=== PATIENT | male | born 1965 | race Caucasian/White ===

== ENCOUNTER → 2017-12-03 | Outpatient (CLI) | payer OTHER ==
[2014-04-20 09:34] VITALS: BMI 47.1
[~2017-12-03] MED LIST: ACET-2031 PO; ALL300 PO; AMOX-559 PO; ASPI81TA94 PO; CARV25TA77 PO; DULO20CA16 PO; DULO60CA56 PO; EZET10TA41 PO; FURO20TA19 PO; HYDR12.556 PO; HYPERLIPIDEMIA; INSU100C12 SQ; INSU100C13 SQ; INSU100V24 SQ; LEVO750T23 PO; MAGN71.52 PO; METO200T12 PO; NITR0.4T3 SL; OXYC-865 PO; PREG100C44 PO; PREG50CA48 PO; RAM25 PO; RAMI10CA52 PO; SIMV10TA98 PO; TRAZ50 PO; UBID100C9 PO
[2017-12-03 13:57] LABS: PLATELET COUNT, AUTOMATED 247 K/uL (150-450)
== END ==
LOC: LAB 13:37
PROVIDERS: ATTEND Internal Medicine Nephrology
DX: E11.22 Type 2 diabetes mellitus with diabetic chronic kidney disease (principal); N18.4 Chronic kidney disease, stage 4 (severe); N25.81 Secondary hyperparathyroidism of renal origin; R60.0 Localized edema; N18.9 Chronic kidney disease, unspecified; D63.1 Anemia in chronic kidney disease; R80.9 Proteinuria, unspecified; I12.9 Hypertensive chronic kidney disease with stage 1 through stage 4 chronic kidney disease, or unspecified chronic kidney disease; N28.9 Disorder of kidney and ureter, unspecified
CPT/HCPCS: 36415; 82040; 82310; 82374; 82435; 82565; 82728; 82947; 83540; 83550; 83970; 84100; 84132; 84295; 84520; 85025

== ENCOUNTER 2017-12-19 07:19 | Emergency (ER) | payer OTHER ==
[2014-04-20 09:34] VITALS: Ht 165.1 cm; Wt 132.0 kg
[~2017-12-19] VITALS: Ht 165.1 cm; Wt 132.0 kg
--- NOTE | 2017-12-19 07:22 | ER Report ---
History and Physical Time Seen By MD: 07:21 HPI/ROS CHIEF COMPLAINT: Low blood sugar HISTORY OF PRESENT ILLNESS: Patient is a 52-year-old male who presents emergency department by ambulance for evaluation of low blood sugar. Apparently this morning the patient was altered and somewhat combative with spouse. Prehospital personnel found her blood sugar 49 administered D50 with a rapid return to baseline mental status. Patient is otherwise asymptomatic at this time. He recently had a fistula placed and is supposed to begin dialysis but has not started yet. His last baseline creatinine was 4.3 on 12/03/2017. Room injury or trauma he denies chest pain or shortness of breath denies abdominal pain nausea vomiting or diarrhea. REVIEW OF SYSTEMS: Constitutional: No fever, no chills. Eyes: No discharge. ENT: No sore throat. Cardiovascular: No chest pain, no palpitations. Respiratory: No cough, no shortness of breath. Gastrointestinal: No abdominal pain, no vomiting. Genitourinary: No hematuria. Musculoskeletal: No back pain. Skin: No rashes. Neurological: No headache. Allergies: Coded Allergies: morphine (Verified Allergy, Mild, VOMITING, 12/19/17) Home Meds Reported Medications Pregabalin (LYRICA) 100 Mg Capsule, PO BID, CAPSULE 06/11/16 Magnesium Chloride (SLOW-MAG) 71.5 Mg Tablet.dr, 71.5 MG PO BID, #60 04/20/14 Nitroglycerin (NITROGLYCERIN) 0.4 Mg Tab.subl, 0.4 MG SL Q5MIN 04/20/14 Ezetimibe (ZETIA) 10 Mg Tablet, 10 MG PO QDAY 04/19/14 Furosemide (LASIX) 20 Mg Tablet, 1 TAB PO DAILY TAKE ONE TABLET BY MOUTH EVERY 6-8 HOURS 04/19/14 Metoprolol Succinate (METOPROLOL SUCCINATE) 200 Mg Tab.er.24h, 200 MG PO QDAY 02/13/14 Ubidecarenone (CO Q-10) 100 Mg Capsule, 100 MG PO DAILY, CAPSULE 02/13/14 Aspirin (ASPIRIN) 81 Mg Tab.chew, 81 MG PO QDAY, TAB.CHEW TAKE 1 TABLET BY MOUTH EVERY DAY 02/13/14 Ramipril (RAMIPRIL) 10 Mg Capsule, 10 MG PO BID, CAPSULE 02/13/14 Duloxetine Hcl (CYMBALTA) 60 Mg Capsule.dr, 60 MG PO QDAY 02/13/14 Insulin Glulisine (APIDRA) 100 Unit/1 Ml Cartridge, 35 UNIT SQ TID 06/29/13 Simvastatin (SIMVASTATIN) 10 Mg Tablet, 10 MG PO HS 05/15/13 Insulin Glargine,Hum.rec.anlog (LANTUS) 100 Unit/1 Ml Cartridge, 45 UNIT SQ BID take 35 units in the morning and take 25 units at night 05/15/13 Allopurinol (ZYLOPRIM (OR EQUIV)) 300 Mg Tab, 300 MG PO DAILY 05/10/12 Past Medical/Surgical History Past Medical/Surgical History Past medical history of irregular heartbeat, hypertension, hypercholesterolemia , sleep apnea, heartburn, UTIs, chronic kidney disease, gout, insulin-dependent diabetes, anxiety, depression Hx Smoking: No Smoking Status: Never Smoker Exposure to Second Hand Smoke?: No Hx Substance Use Disorder: No Hx Alcohol Use: No Constitutional Vital Sign - Last 24 Hours 12/19/17 12/19/17 12/19/17 12/19/17 07:25 07:26 07:29 07:34 Temp 97.9 Pulse 58 55 57 Resp 16 28 28 B/P (MAP) 162/78 162/78 (106) Pulse Ox 96 97 95 O2 Delivery Room Air 12/19/17 12/19/17 12/19/17 12/19/17 07:39 07:44 07:45 07:50 Pulse 60 53 54 51 Resp 70 15 18 Pulse Ox 95 96 94 12/19/17 12/19/17 12/19/17 12/19/17 08:05 08:20 08:25 08:30 Pulse 55 51 50 Resp 21 B/P (MAP) 154/67 (96) 186/78 (114) Pulse Ox 96 96 96 12/19/17 12/19/17 12/19/17 12/19/17 08:35 08:40 08:45 08:55 Pulse 51 53 51 B/P (MAP) 204/85 (124) Pulse Ox 95 93 95 92 12/19/17 12/19/17 12/19/17 12/19/17 09:00 09:15 09:30 09:45 B/P (MAP) 189/89 (122) 201/84 (123) 204/86 (125) 187/81 (116) 12/19/17 12/19/17 10:00 10:15 B/P (MAP) 189/74 (112) 192/77 (115) Intake and Output 12/19/17 12/19/17 12/20/17 15:01 23:01 07:01 Intake Total 1000 ml Balance 1000 ml Physical Exam General Appearance: The patient is alert, has no immediate need for airway protection and no signs of toxicity. [ ] Eyes: Pupils equal and round no pallor or injection. ENT, Mouth: Mucous membranes are moist. Respiratory: There are no retractions, lungs are clear to auscultation. Cardiovascular: Regular rate and rhythm. [ ] Gastrointestinal: Abdomen is soft and non tender, no masses, bowel sounds normal. Neurological: Awake alert oriented 3 Skin: Warm and dry, no rashes. Musculoskeletal: Neck is supple non tender. Extremities are nontender, nonswollen and have full range of motion. Medical Decision Making Data Points Result Diagram: 12/19/17 0812 12/19/17 0845 Laboratory Hematology Test 12/19/17 08:12 12/19/17 08:45 12/19/17 10:25 Red Blood Count 4.27 M/uL (4.00-5.60) Mean Corpuscular Volume 89.5 fL (80.0-96.0) Mean Corpuscular Hemoglobin 28.9 pg (26.0-33.0) Mean Corpuscular Hemoglobin Concent 32.3 g/dL (32.0-36.0) Red Cell Distribution Width 16.1 % (11.5-14.5) Mean Platelet Volume 9.1 fL (7.2-11.1) Neutrophils (%) (Auto) 85.4 % (39.4-72.5) Lymphocytes (%) (Auto) 6.3 % (17.6-49.6) Monocytes (%) (Auto) 4.5 % (4.1-12.4) Eosinophils (%) (Auto) 2.2 % (0.4-6.7) Basophils (%) (Auto) 1.6 % (0.3-1.4) Nucleated RBC Relative Count (auto) 0.0 /100WBC Neutrophils # (Auto) 11.2 K/uL (2.0-7.4) Lymphocytes # (Auto) 0.8 K/uL (1.3-3.6) Monocytes # (Auto) 0.6 K/uL (0.3-1.0) Eosinophils # (Auto) 0.3 K/uL (0.0-0.5) Basophils # (Auto) 0.2 K/uL (0.0-0.1) Nucleated RBC Absolute Count (auto) 0.00 K/uL Urine Color Yellow Urine Clarity Clear Urine pH 5.0 pH (4.8-9.5) Urine Specific [place] 1.012 Urine Protein 100 mg/dL (NEGATIVE) Urine Glucose (UA) 50 mg/dL (NEGATIVE) Urine Ketones Negative mg/dL (NEGATIVE) Urine Blood Negative (NEGATIVE) Urine Nitrite Negative (NEGATIVE) Urine Bilirubin Negative (NEGATIVE) Urine Urobilinogen Negative mg/dL (0.2-1.9) Urine Leukocyte Esterase Negative (NEGATIVE) Urine RBC None /HPF (0-2/HPF) Urine WBC 1 /HPF (0-5/HPF) Urine Squamous Epithelial Cells Few /LPF (</=FEW) Urine Bacteria Few /HPF (NONE-FEW) Urine Mucus None /HPF (NONE-FEW) Sodium Level 137 mmol/L (137-145) Potassium Level 4.7 mmol/L (3.5-5.0) Chloride Level 108 mmol/L (98-107) Carbon Dioxide Level 19 mmol/L (22-30) Blood Urea Nitrogen 55 mg/dl (9-21) Creatinine 3.90 mg/dl (0.66-1.25) Glomerular Filtration Rate Calc 16.3 Random Glucose 81 mg/dl (75-110) Calcium Level 8.9 mg/dl (8.4-10.2) Total Bilirubin 0.3 mg/dl (0.2-1.3) Aspartate Amino Transf (AST/SGOT) 13 U/L (0-35) Alanine Aminotransferase (ALT/SGPT) 23 U/L (0-56) Alkaline Phosphatase 67 U/L (0-126) Total Protein 6.5 gm/dl (6.3-8.2) Albumin 3.2 g/dl (3.5-5.0) Whole Blood Glucose 90 mg/DL (75-110) Chemistry Test 12/19/17 08:12 12/19/17 08:45 12/19/17 10:25 White Blood Count 13.1 k/uL (4.5-11.0) Red Blood Count 4.27 M/uL (4.00-5.60) Hemoglobin 12.3 g/dL (14.0-18.0) Hematocrit 38.2 % (42.0-52.0) Mean Corpuscular Volume 89.5 fL (80.0-96.0) Mean Corpuscular Hemoglobin 28.9 pg (26.0-33.0) Mean Corpuscular Hemoglobin Concent 32.3 g/dL (32.0-36.0) Red Cell Distribution Width 16.1 % (11.5-14.5) Platelet Count 237 K/uL (150-450) Mean Platelet Volume 9.1 fL (7.2-11.1) Neutrophils (%) (Auto) 85.4 % (39.4-72.5) Lymphocytes (%) (Auto) 6.3 % (17.6-49.6) Monocytes (%) (Auto) 4.5 % (4.1-12.4) Eosinophils (%) (Auto) 2.2 % (0.4-6.7) Basophils (%) (Auto) 1.6 % (0.3-1.4) Nucleated RBC Relative Count (auto) 0.0 /100WBC Neutrophils # (Auto) 11.2 K/uL (2.0-7.4) Lymphocytes # (Auto) 0.8 K/uL (1.3-3.6) Monocytes # (Auto) 0.6 K/uL (0.3-1.0) Eosinophils # (Auto) 0.3 K/uL (0.0-0.5) Basophils # (Auto) 0.2 K/uL (0.0-0.1) Nucleated RBC Absolute Count (auto) 0.00 K/uL Urine Color Yellow Urine Clarity Clear Urine pH 5.0 pH (4.8-9.5) Urine Specific [place] 1.012 Urine Protein 100 mg/dL (NEGATIVE) Urine Glucose (UA) 50 mg/dL (NEGATIVE) Urine Ketones Negative mg/dL (NEGATIVE) Urine Blood Negative (NEGATIVE) Urine Nitrite Negative (NEGATIVE) Urine Bilirubin Negative (NEGATIVE) Urine Urobilinogen Negative mg/dL (0.2-1.9) Urine Leukocyte Esterase Negative (NEGATIVE) Urine RBC None /HPF (0-2/HPF) Urine WBC 1 /HPF (0-5/HPF) Urine Squamous Epithelial Cells Few /LPF (</=FEW) Urine Bacteria Few /HPF (NONE-FEW) Urine Mucus None /HPF (NONE-FEW) Glomerular Filtration Rate Calc 16.3 Calcium Level 8.9 mg/dl (8.4-10.2) Total Bilirubin 0.3 mg/dl (0.2-1.3) Aspartate Amino Transf (AST/SGOT) 13 U/L (0-35) Alanine Aminotransferase (ALT/SGPT) 23 U/L (0-56) Alkaline Phosphatase 67 U/L (0-126) Total Protein 6.5 gm/dl (6.3-8.2) Albumin 3.2 g/dl (3.5-5.0) Whole Blood Glucose 90 mg/DL (75-110) Urinalysis Test 12/19/17 08:12 Urine Color Yellow Urine Clarity Clear Urine pH 5.0 pH (4.8-9.5) Urine Specific [place] 1.012 Urine Protein 100 mg/dL (NEGATIVE) Urine Glucose (UA) 50 mg/dL (NEGATIVE) Urine Ketones Negative mg/dL (NEGATIVE) Urine Blood Negative (NEGATIVE) Urine Nitrite Negative (NEGATIVE) Urine Bilirubin Negative (NEGATIVE) Urine Urobilinogen Negative mg/dL (0.2-1.9) Urine Leukocyte Esterase Negative (NEGATIVE) Urine RBC None /HPF (0-2/HPF) Urine WBC 1 /HPF (0-5/HPF) Urine Squamous Epithelial Cells Few /LPF (</=FEW) Urine Bacteria Few /HPF (NONE-FEW) Urine Mucus None /HPF (NONE-FEW) EKG/Imaging EKG Interpretation EKG shows sinus bradycardia with rate of 54 bpm. There is left axis deviation and voltage criteria for left ventricular hypertrophy. This was compared to an EKG from May 2016 which showed sinus bradycardia with first-degree AV block and left ventricular hypertrophy along with left axis deviation. Monitor Interpretation: Sinus Bradycardia ED Course/Re-evaluation ED Course 12/19/2017 7:44:28 am plan at this time will be to perform CBC CMP urinalysis EKG. We will observe the patient in the emergency department for a period of time with serial blood sugars. If he remains euglycemic we should be able to discharge him home. 12/19/2017 9:48:03 am went from room to update patient with regard to our plan to observe him approximate another hour repeat blood sugar was 68 mg/dL we are continuing to have him drink some juice we will repeat Accu-Chek at approximately 10:30. I did order the patient's blood pressure medicines that he normally takes in the morning. Patient was angry that he felt that we were not communicating our plan with him I 1st apologized for the delay but did explain that the emergency department is busier than usual this morning and I'm currently the only provider. I did state that I agree communication is important and again apologized and we'll try to update him more frequently with our plan. Blood work at this time it shows a creatinine of 3.9 which is better than baseline. Anticipate we will repeat blood sugar and if within the normal range with discharge home. Decision to Disposition Date: Dec 19, 2017 Decision to Disposition Time: 10:22 Depart Departure Latest Vital Signs Vital Signs Date Time Temp Pulse Resp B/P (MAP) Pulse Ox O2 Delivery O2 Flow Rate FiO2 12/19/17 10:15 192/77 (115) 12/19/17 08:55 92 12/19/17 08:45 51 12/19/17 08:05 21 12/19/17 07:25 97.9 Room Air Impression: Primary Impression: Hypoglycemia Condition: Improved Disposition: HOME OR SELF-CARE Referrals: RAMÍREZ MEDELLIN PA-C (PCP) 1 Week for routine check up Patient Instructions: Hypoglycemia in a Person with Diabetes (ED) JAMIE TORRES MD Dec 19, 2017 07:22
--- NOTE | 2017-12-19 07:46 | EKG ---
FACILITY: [facility] - [place] PATIENT NAME: RAFFY MINAYA : [id number] MR: [id number] V: [id number] EXAM DATE: ORDERING PHYSICIAN: JAMIE TORRES TECHNOLOGIST: LALI Chapman Reason : Blood Pressure : / mmHG Vent. Rate : 054 BPM Atrial Rate : 054 BPM P-R Int : 190 ms QRS Dur : 114 ms QT Int : 454 ms P-R-T Axes : 010 -36 033 degrees QTc Int : 430 ms Sinus bradycardia Left axis deviation Pulmonary disease pattern Voltage criteria for left ventricular hypertrophy Nonspecific T wave abnormality Abnormal ECG When compared with ECG of 11-JUN-2016 15:54, ID interval has decreased QRS duration has decreased Nonspecific T wave abnormality now evident in Lateral leads Confirmed by CHAU CALLAHAN ([id number]) on 12/21/2017 7:42:51 AM Referred By: Confirmed By:CHAU CALLAHAN
[2017-12-19] MEDS ORDERED: EMS NS 0.9%(*) 1000 ML BAG 1,000 ML IV ONE (08:00)
[2017-12-19] MEDS ORDERED: METHOCARBAMOL 500 MG TAB PO ONE (08:10)
[2017-12-19 08:29] LABS: PLATELET COUNT, AUTOMATED 237 K/uL (150-450)
[2017-12-19] MEDS ORDERED: METOPROLOL TART 50 MG TAB PO ONE (09:45)
[2017-12-19] MEDS ORDERED: hydrALAZINE HCL 25 MG TAB PO ONE (09:45)
[2017-12-19] MEDS ORDERED: ATORVASTATIN 10 MG TAB PO ONE (09:45)
[2017-12-19] MEDS ORDERED: cloNIDine HCL 0.1 MG TAB PO ONE (09:45)
[2017-12-19] MEDS ORDERED: buPROPion IR 100 MG TAB PO ONE (09:45)
[2017-12-19 10:15] VITALS: BP 192/77
== END 2017-12-19 10:35 | disposition home or self-care (01) ==
LOC: ER 07:41
DX: E11.649 Type 2 diabetes mellitus with hypoglycemia without coma (principal)
CPT/HCPCS: 36416; 81001; 82040; 82247; 82310; 82374; 82435; 82565; 82947; 82948; 84075; 84132; 84155; 84295; 84450; 84460; 84520; 85025; 93005; 96360; 96361; 99283; 99284

== ENCOUNTER → 2017-12-19 | Outpatient (CLI) | payer OTHER ==
[2014-04-20 09:34] VITALS: BMI 47.1
== END ==
LOC: AMB 06:42
PROVIDERS: ATTEND Nurse Practitioner
DX: E10.649 Type 1 diabetes mellitus with hypoglycemia without coma (principal)
CPT/HCPCS: A0425; A0427

== ENCOUNTER 2018-02-16 11:24 | Emergency (ER) | payer OTHER ==
[2014-04-20 09:34] VITALS: Wt 132.1 kg
--- NOTE | 2018-02-16 11:17 | ER Report ---
History and Physical Time Seen By MD: 11:16 HPI/ROS CHIEF COMPLAINT: Fall HISTORY OF PRESENT ILLNESS: Patient is a 52-year-old male who presents to the emergency department via ambulance after a slip and fall on some water at home. Patient slipped in his kitchen landing on his right buttock area. Complaining of severe pain along the back of the right leg. Patient was unable to get up on his own. Patient also has a history of left knee replacement is complaining of some pain to the left knee. He denies hitting his head. He denies any nausea or vomiting. Denies any other injuries. REVIEW OF SYSTEMS: Constitutional: No fever, no chills. Cardiovascular: No chest pain, no palpitations. Respiratory: No cough, no shortness of breath. Gastrointestinal: No abdominal pain, no vomiting. Musculoskeletal: No back pain. Right hamstring pain Skin: No rashes. Neurological: No headache. Allergies: Coded Allergies: morphine (Verified Allergy, Mild, VOMITING, 02/16/18) Home Meds Active Scripts Hydrocodone Bit/Acetaminophen (HYDROCODON-ACETAMINOPHEN 5-325) 1 Each Tablet, 1 EACH PO Q4-6H Y for PAIN, #12 TAB 0 Refills TAKE ONE TABLET BY MOUTH EVERY 4-6 HOURS NEEDED FOR PAIN Prov:JAMIE TORRES MD 02/16/18 Reported Medications Trazodone Hcl (TRAZODONE HCL) 150 Mg Tablet, 150 MG PO QHS 02/16/18 Metoprolol Tartrate (METOPROLOL TARTRATE) 50 Mg Tab, 1 TAB PO DAILY, TAB 02/16/18 Insulin Glulisine (APIDRA SOLOSTAR) 100 Unit/1 Ml Insuln.pen, 10 UNIT SQ ACHS 02/16/18 Insulin Glargine (LANTUS) 100 Unit/Ml Soln, 15 UNIT SUBQ BID, ML 02/16/18 Hydralazine Hcl (HYDRALAZINE HCL) 25 Mg Tablet, 25 MG PO BID, TAB 02/16/18 Oxygen (OXYGEN) Inha, 2 L INH DAILY, L 02/16/18 Clonidine Hcl (CLONIDINE HCL) 0.1 Mg Tablet, 0.1 MG PO BID, TAB 02/16/18 Calcitriol (ROCALTROL) 0.5 Mcg Capsule, 0.5 MCG PO QMON, WED, FRI, CAPSULE 02/16/18 Calcitriol (ROCALTROL) 0.25 Mcg Capsule, 0.25 MCG PO QSAT, SUN, , TH, CAPSULE 02/16/18 Bupropion Hcl (WELLBUTRIN SR) 100 Mg Tablet.er, 100 MG PO QDAY, TAB 02/16/18 Bumetanide (BUMETANIDE) 1 Mg Tablet, 1 MG PO BID 02/16/18 Atorvastatin Calcium (ATORVASTATIN CALCIUM) 20 Mg Tablet, 1 TAB PO QDAY, TAB 02/16/18 Nitroglycerin (NITROGLYCERIN) 0.4 Mg Tab.subl, 0.4 MG SL Q5MIN 04/20/14 Ezetimibe (ZETIA) 10 Mg Tablet, 10 MG PO QDAY 04/19/14 Aspirin (ASPIRIN) 81 Mg Tab.chew, 81 MG PO QDAY, TAB.CHEW TAKE 1 TABLET BY MOUTH EVERY DAY 02/13/14 Duloxetine Hcl (CYMBALTA) 60 Mg Capsule.dr, 60 MG PO QDAY 02/13/14 Allopurinol (ZYLOPRIM (OR EQUIV)) 300 Mg Tab, 300 MG PO DAILY 05/10/12 Discontinued Reported Medications Pregabalin (LYRICA) 100 Mg Capsule, PO BID, CAPSULE 06/11/16 Magnesium Chloride (SLOW-MAG) 71.5 Mg Tablet.dr, 71.5 MG PO BID, #60 04/20/14 Furosemide (LASIX) 20 Mg Tablet, 1 TAB PO DAILY TAKE ONE TABLET BY MOUTH EVERY 6-8 HOURS 04/19/14 Metoprolol Succinate (METOPROLOL SUCCINATE) 200 Mg Tab.er.24h, 200 MG PO QDAY 02/13/14 Ubidecarenone (CO Q-10) 100 Mg Capsule, 100 MG PO DAILY, CAPSULE 02/13/14 Ramipril (RAMIPRIL) 10 Mg Capsule, 10 MG PO BID, CAPSULE 02/13/14 Insulin Glulisine (APIDRA) 100 Unit/1 Ml Cartridge, 35 UNIT SQ TID 06/29/13 Simvastatin (SIMVASTATIN) 10 Mg Tablet, 10 MG PO HS 05/15/13 Insulin Glargine,Hum.rec.anlog (LANTUS) 100 Unit/1 Ml Cartridge, 45 UNIT SQ BID take 35 units in the morning and take 25 units at night 05/15/13 Past Medical/Surgical History Past medical history of irregular heartbeat, hypertension, hypercholesterolemia , sleep apnea, heartburn, UTIs, chronic kidney disease, gout, insulin-dependent diabetes, anxiety, depression Hx Smoking: No Smoking Status: Never Smoker Exposure to Second Hand Smoke?: No Hx Substance Use Disorder: No Hx Alcohol Use: No Constitutional Vital Sign - Last 24 Hours 02/16/18 02/16/18 02/16/18 02/16/18 11:28 11:28 11:30 12:00 Temp 97.5 Pulse 60 59 53 Resp 18 11 26 B/P (MAP) 178/69 186/81 (116) 191/78 (115) Pulse Ox 93 94 96 O2 Delivery Room Air O2 Flow Rate 3.0 02/16/18 02/16/18 02/16/18 02/16/18 12:15 12:30 12:45 12:59 Pulse 50 Resp 22 B/P (MAP) 165/68 (100) 173/77 (109) 167/69 (101) 162/71 (101) 02/16/18 13:00 Pulse 50 Resp 9 Pulse Ox 84 Physical Exam General Appearance: The patient is alert, has no immediate need for airway protection and no current signs of toxicity. Eyes: Pupils equal and round no injection. Respiratory: Chest is non tender, lungs are clear to auscultation. Cardiac: regular rate and rhythm Gastrointestinal: Abdomen is soft and non tender, no masses, bowel sounds normal. Musculoskeletal: Neck: Neck is supple and non tender. Extremities: Patient is able to lift right leg off the gurney with his moderate effort. Complains of pain to palpation along the posterior aspect of the leg along the hamstring. Medical Decision Making Data Points Laboratory Hematology Test 02/16/18 12:19 Whole Blood Glucose 59 mg/DL (75-110) Chemistry Test 02/16/18 12:19 Whole Blood Glucose 59 mg/DL (75-110) EKG/Imaging EKG Interpretation EKG shows sinus bradycardia with left axis deviation. Monitor Interpretation: Normal Sinus Rhythm Imaging X-ray of right hip unremarkable for acute injury. X-ray of left knee shows no acute injury or fracture there is severe osteoarthritis ED Course/Re-evaluation ED Course 02/16/2018 12:22:33 pm this time will be x-ray of the left knee along with the right hip. Patient known to have episodes of hypoglycemia will check Accu-Chek. We'll treat with pain medication and attempt to ambulate the patient. Decision to Disposition Date: Feb 16, 2018 Decision to Disposition Time: 12:56 Depart Departure Latest Vital Signs Vital Signs Date Time Temp Pulse Resp B/P (MAP) Pulse Ox O2 Delivery O2 Flow Rate FiO2 02/16/18 13:00 50 9 84 02/16/18 12:59 162/71 (101) 02/16/18 11:28 3.0 02/16/18 11:28 97.5 Room Air Impression: Primary Impression: Hamstring muscle strain Condition: Improved Disposition: HOME OR SELF-CARE Referrals: RAÍMREZ MEDELLIN PA-C (PCP) 2 Days if symptoms persist New Scripts Hydrocodone Bit/Acetaminophen (HYDROCODON-ACETAMINOPHEN 5-325) 1 Each Tablet 1 EACH PO Q4-6H Y for PAIN, #12 TAB 0 Refills TAKE ONE TABLET BY MOUTH EVERY 4-6 HOURS NEEDED FOR PAIN Prov: JAMIE TORRES MD 02/16/18 Patient Instructions: Muscle Strain (ED) Problem Qualifiers Primary Impression: Hamstring muscle strain Encounter type: initial encounter Laterality: right Qualified Codes: S76.311A - Strain of muscle, fascia and tendon of the posterior muscle group at thigh level, right thigh, initial encounter JAMIE TORRES MD Feb 16, 2018 11:17
[~2018-02-16 11:24] MED LIST changes: -ATOR20TA65 PO; -BUME1TAB19 PO; -BUPR-133 PO; -CALC0.2522 PO; -CALC0.5C9 PO; -CLON-327 PO; -HYDR25TA66 PO; -INSU100I32 SQ; -LANI SUBQ; -LOR5/325 PO; -METO-253 PO; -OXYGENHOME INH; -TRAZ150T8 PO
[2018-02-16] MEDS ORDERED: HYDROmorphone* 1 MG/ML 1 MG/ML ML IVP ONE (11:25)
[2018-02-16] MEDS ORDERED: HYDR25TA66 PO (11:45)
[2018-02-16] MEDS ORDERED: INSU100I32 SQ (11:45)
[2018-02-16] MEDS ORDERED: TRAZ150T8 PO (11:45)
[2018-02-16] MEDS ORDERED: METO-253 PO (11:45)
[2018-02-16] MEDS ORDERED: BUPR-133 PO (11:45)
[2018-02-16] MEDS ORDERED: ATOR20TA65 PO (11:45)
[2018-02-16] MEDS ORDERED: CALC0.2522 PO (11:45)
[2018-02-16] MEDS ORDERED: BUME1TAB19 PO (11:45)
[2018-02-16] MEDS ORDERED: LANI SUBQ (11:45)
[2018-02-16] MEDS ORDERED: CLON-327 PO (11:45)
[2018-02-16] MEDS ORDERED: CALC0.5C9 PO (11:45)
[2018-02-16] MEDS ORDERED: OXYGENHOME INH (11:45)
[2018-02-16] MEDS ORDERED: LOR5/325 PO (12:54)
[2018-02-16 12:59] VITALS: BP 162/71
--- NOTE | 2018-02-16 16:46 | RADIOLOGY IMAGING REPORT ---
FACILITY: [facility] - [place] PATIENT NAME: Robin Bowen : 1965 MR: [id number] V: [id number] EXAM DATE: ORDERING PHYSICIAN: JAMIE TORRES TECHNOLOGIST: Location: [facility] Patient: Robin Bowen : 1965 Visit/Account:[id number] Date of Sevice: 02/16/2018 HIP RIGHT Indication: fall Comparison: None. Findings: Bones the pelvis and the proximal right and left femur are intact. Right and left hip joint spaces demonstrate normal alignment. Soft tissues are unremarkable. IMPRESSION: No evidence of pelvis or right hip fracture or dislocation. Report Dictated By: Temo Natarajan at 02/16/2018 12:36 PM Report E-Signed By: Temo Natarajan at 02/16/2018 12:38 PM WSN:[id number]
--- NOTE | 2018-02-16 16:46 | EKG ---
FACILITY: [facility] PATIENT NAME: RAFFY MINAYA : [id number] MR: [id number] V: [id number] EXAM DATE: ORDERING PHYSICIAN: JAMIE TORRES TECHNOLOGIST: LALI Chapman Reason : Blood Pressure : / mmHG Vent. Rate : 056 BPM Atrial Rate : 056 BPM P-R Int : 172 ms QRS Dur : 112 ms QT Int : 442 ms P-R-T Axes : 007 -31 070 degrees QTc Int : 426 ms Sinus bradycardia Left axis deviation Moderate voltage criteria for LVH, may be normal variant Q waves consistent with an old inferior NC When compared with ECG of 19-DEC-2017 07:37, Relatively unchanged Confirmed by LISA BERTRAND ([id number]) on 02/16/2018 2:12:20 PM Referred By: Confirmed By:LISA BERTRAND
--- NOTE | 2018-02-16 16:46 | RADIOLOGY IMAGING REPORT ---
FACILITY: [facility] - [place] PATIENT NAME: Robin Bowen : 1965 MR: [id number] V: [id number] EXAM DATE: ORDERING PHYSICIAN: JAMIE TORRES TECHNOLOGIST: [place] [facility] [place]: Robin Bowen : 1965 Visit/Account:[id number] Date of Sevice: 02/16/2018 KNEE 3 VIEW LEFT Indication: fall Comparison: None. Findings: There are postoperative changes, likely representing an ACL repair. There is severe narrowi ng of the medial and lateral compartment with osteophyte formation. Soft tissues are normal. IMPRESSION: 1. No evidence of fracture. 2. Postoperative changes, likely representing prior ACL repair. 3. Moderate to severe tricompartment osteoarthritis. Report Dictated By: Temo Natarajan at 02/16/2018 12:38 PM Report E-Signed By: Temo Natarajan at 02/16/2018 12:40 PM WSN:[id number]
== END 2018-02-16 13:09 | disposition home or self-care (01) ==
LOC: ER 11:37
DX: S76.311A Strain of muscle, fascia and tendon of the posterior muscle group at thigh level, right thigh, initial encounter (principal); W01.0XXA Fall on same level from slipping, tripping and stumbling without subsequent striking against object, initial encounter; E11.9 Type 2 diabetes mellitus without complications
CPT/HCPCS: 36416; 73502; 73562; 82948; 93005; 96374; 99284; J1170

== ENCOUNTER → 2018-02-16 | Outpatient (CLI) | payer OTHER ==
[2014-04-20 09:34] VITALS: BMI 47.1
[~2018-02-16] MED LIST changes: +ATOR20TA65 PO; +BUME1TAB19 PO; +BUPR-133 PO; +CALC0.2522 PO; +CALC0.5C9 PO; +CLON-327 PO; +HYDR25TA66 PO; +INSU100I32 SQ; +LANI SUBQ; +LOR5/325 PO; +METO-253 PO; +OXYGENHOME INH; +TRAZ150T8 PO
== END ==
LOC: AMB 10:41
PROVIDERS: ATTEND Nurse Practitioner
DX: M79.604 Pain in right leg (principal); W01.0XXA Fall on same level from slipping, tripping and stumbling without subsequent striking against object, initial encounter; Y92.000 Kitchen of unspecified non-institutional (private) residence as the place of occurrence of the external cause
CPT/HCPCS: A0425; A0427

== ENCOUNTER → 2018-03-27 | Outpatient (CLI) | payer OTHER ==
[2014-04-20 09:34] VITALS: BMI 47.1
[~2018-03-27] MED LIST changes: +ATOR20TA65 PO; +BUME1TAB19 PO; +BUPR-133 PO; +CALC0.2522 PO; +CALC0.5C9 PO; +CLON-327 PO; +HYDR25TA66 PO; +INSU100I32 SQ; +LANI SUBQ; +LOR5/325 PO; +METO-253 PO; +OXYGENHOME INH; +TRAZ150T8 PO
[2018-03-27 07:15] LABS: PLATELET COUNT, AUTOMATED 235 K/uL (150-450)
== END ==
LOC: LAB 06:49
PROVIDERS: ATTEND Internal Medicine Nephrology
DX: I12.9 Hypertensive chronic kidney disease with stage 1 through stage 4 chronic kidney disease, or unspecified chronic kidney disease (principal); N18.5 Chronic kidney disease, stage 5; R60.0 Localized edema
CPT/HCPCS: 36415; 82040; 82306; 82310; 82374; 82435; 82565; 82570; 82947; 83970; 84100; 84132; 84156; 84295; 84520; 85025

== ENCOUNTER → 2018-06-26 | Outpatient (CLI) | payer OTHER ==
[2014-04-20 09:34] VITALS: BMI 47.1
[2018-06-26 11:52] LABS: PLATELET COUNT, AUTOMATED 251 K/uL (150-450)
== END ==
LOC: LAB 11:24
PROVIDERS: ATTEND Internal Medicine Nephrology
DX: N18.2 Chronic kidney disease, stage 2 (mild) (principal); I10 Essential (primary) hypertension; E87.2 Acidosis
CPT/HCPCS: 36415; 82040; 82306; 82310; 82374; 82435; 82565; 82570; 82947; 83970; 84100; 84132; 84156; 84295; 84520; 85025

== ENCOUNTER → 2018-07-17 | Outpatient (CLI) | payer OTHER ==
[2014-04-20 09:34] VITALS: BMI 47.1
== END ==
LOC: LAB 14:50
PROVIDERS: ATTEND Internal Medicine Nephrology
DX: I12.9 Hypertensive chronic kidney disease with stage 1 through stage 4 chronic kidney disease, or unspecified chronic kidney disease (principal); N18.5 Chronic kidney disease, stage 5; D63.1 Anemia in chronic kidney disease; E83.39 Other disorders of phosphorus metabolism; N25.81 Secondary hyperparathyroidism of renal origin; R60.0 Localized edema
CPT/HCPCS: 36415; 82040; 82310; 82374; 82435; 82565; 82947; 84100; 84132; 84295; 84520

== ENCOUNTER → 2018-08-19 | Outpatient (CLI) | payer OTHER ==
[2014-04-20 09:34] VITALS: BMI 47.1
[~2018-08-19] MED LIST changes: -RAMI10CA52 PO; +RAMI10CA9 PO
== END ==
LOC: LAB 10:08
PROVIDERS: ATTEND Nurse Practitioner Family
DX: Z12.5 Encounter for screening for malignant neoplasm of prostate (principal); R73.01 Impaired fasting glucose; R53.81 Other malaise; E87.8 Other disorders of electrolyte and fluid balance, not elsewhere classified; E78.00 Pure hypercholesterolemia, unspecified; E53.8 Deficiency of other specified B group vitamins; E55.9 Vitamin D deficiency, unspecified
CPT/HCPCS: 36415; 82040; 82247; 82306; 82310; 82374; 82435; 82465; 82565; 82607; 82947; 83036; 83718; 84075; 84132; 84153; 84155; 84295; 84443; 84450; 84460; 84478; 84520; 85027

== ENCOUNTER → 2018-08-19 | Outpatient (CLI) | payer OTHER ==
[2014-04-20 09:34] VITALS: BMI 47.1
== END ==
LOC: LAB 10:34
PROVIDERS: ATTEND Internal Medicine Nephrology
DX: N18.9 Chronic kidney disease, unspecified (principal); D63.1 Anemia in chronic kidney disease; E83.39 Other disorders of phosphorus metabolism; I10 Essential (primary) hypertension; N25.81 Secondary hyperparathyroidism of renal origin; R60.0 Localized edema
CPT/HCPCS: 82728; 83540; 83970; 84100

== ENCOUNTER 2018-09-12 16:30 | Outpatient (RCR) | payer MEDICARE, OTHER ==
[2014-04-20 09:34] VITALS: BMI 47.1
[2018-09-12] MEDS: HEPARIN (PORCINE) 1000 UNIT/ML (DIALYSIS) IVP PRN ×2 (13:41)
[2018-09-12 14:17] LABS: PLATELET COUNT, AUTOMATED 226 K/uL (150-450)
[~2018-09-12 16:30] MED LIST changes: +DIALYSIS ACETAMINOPHEN 325 MG PO PRN; +GABA-547 PO; +HYDR50TA35 PO; +LIDOCAINE/SOD BICARB 8.4% SYR SC PRN; +LOPERAMIDE HCL 2 MG CAP PO PRN; +METO2.5T15 PO; +PROMETHAZINE HCL 25 MG TAB PO PRN; +SODI650T7 PO; +diphenhydr DIALYSIS 50 MG/ML IVP PRN
[2018-09-15] MEDS: HEPARIN (PORCINE) 1000 UNIT/ML (DIALYSIS) IVP PRN ×2 (13:56)
[2018-09-17] MEDS: HEPARIN (PORCINE) 1000 UNIT/ML (DIALYSIS) IVP PRN ×2 (12:40)
[2018-09-19] MEDS: HEPARIN (PORCINE) 1000 UNIT/ML (DIALYSIS) IVP PRN ×2 (12:07→12:08)
[2018-09-19] MEDS ORDERED: AMLO-111 PO (15:06)
[2018-09-19] MEDS ORDERED: LISI5TAB25 PO (15:12)
[2018-09-19] MEDS ORDERED: VIT-35 PO (15:13)
[2018-09-22] MEDS: HEPARIN (PORCINE) 1000 UNIT/ML (DIALYSIS) IVP PRN ×2 (12:17)
[2018-09-24] MEDS: HEPARIN (PORCINE) 1000 UNIT/ML (DIALYSIS) IVP PRN ×2 (12:12)
[2018-09-26] MEDS: HEPARIN (PORCINE) 1000 UNIT/ML (DIALYSIS) IVP PRN ×2 (12:16→12:17)
[2018-09-29] MEDS: HEPARIN (PORCINE) 1000 UNIT/ML (DIALYSIS) IVP PRN ×2 (12:07)
[2018-10-01] MEDS: HEPARIN (PORCINE) 1000 UNIT/ML (DIALYSIS) IVP PRN ×2 (12:05)
[2018-10-03] MEDS: HEPARIN (PORCINE) 1000 UNIT/ML (DIALYSIS) IVP PRN ×2 (12:04)
[2018-10-06] MEDS: HEPARIN (PORCINE) 1000 UNIT/ML (DIALYSIS) IVP PRN ×2 (12:05)
[2018-10-08] MEDS: HEPARIN (PORCINE) 1000 UNIT/ML (DIALYSIS) IVP PRN ×2 (12:05)
[2018-10-08 12:51] LABS: PLATELET COUNT, AUTOMATED 194 K/uL (150-450)
[2018-10-11] MEDS: HEPARIN (PORCINE) 1000 UNIT/ML (DIALYSIS) IVP PRN ×2 (12:13→12:14)
[2018-10-14] MEDS: HEPARIN (PORCINE) 1000 UNIT/ML (DIALYSIS) IVP PRN ×2 (10:01)
[2018-10-15] MEDS: HEPARIN (PORCINE) 1000 UNIT/ML (DIALYSIS) IVP PRN ×2 (12:07)
[2018-10-15] MEDS: SODIUM FERRIC GLUC 62.5 MG/5ML IVP PRN (13:37)
[2018-10-17] MEDS: HEPARIN (PORCINE) 1000 UNIT/ML (DIALYSIS) IVP PRN ×2 (12:18)
[2018-10-17] MEDS: SODIUM FERRIC GLUC 62.5 MG/5ML IVP PRN (13:35)
[2018-10-20] MEDS: HEPARIN (PORCINE) 1000 UNIT/ML (DIALYSIS) IVP PRN ×2 (12:17)
[2018-10-20] MEDS: SODIUM FERRIC GLUC 62.5 MG/5ML IVP PRN (13:05)
[2018-10-22] MEDS: HEPARIN (PORCINE) 1000 UNIT/ML (DIALYSIS) IVP PRN ×2 (12:13)
[2018-10-22 12:46] LABS: PLATELET COUNT, AUTOMATED 279 K/uL (150-450)
[2018-10-22] MEDS: SODIUM FERRIC GLUC 62.5 MG/5ML IVP PRN (14:18)
[2018-10-24] MEDS: HEPARIN (PORCINE) 1000 UNIT/ML (DIALYSIS) IVP PRN ×2 (12:11)
[2018-10-27] MEDS: HEPARIN (PORCINE) 1000 UNIT/ML (DIALYSIS) IVP PRN ×2 (12:06)
[2018-10-29] MEDS ORDERED: SODIUM FERRIC GLUC 62.5 MG/5ML IVP PRN (11:05)
[2018-10-29] MEDS: HEPARIN (PORCINE) 1000 UNIT/ML (DIALYSIS) IVP PRN ×2 (11:57)
[2018-10-31] MEDS: HEPARIN (PORCINE) 1000 UNIT/ML (DIALYSIS) IVP PRN ×2 (12:05)
[2018-11-03] MEDS: HEPARIN (PORCINE) 1000 UNIT/ML (DIALYSIS) IVP PRN ×2 (12:15)
[2018-11-09] MEDS: HEPARIN (PORCINE) 1000 UNIT/ML (DIALYSIS) IVP PRN ×2 (12:24→12:25)
[2018-11-12] MEDS: HEPARIN (PORCINE) 1000 UNIT/ML (DIALYSIS) IVP PRN ×2 (12:11)
[2018-11-14] MEDS: HEPARIN (PORCINE) 1000 UNIT/ML (DIALYSIS) IVP PRN ×2 (12:07)
[2018-11-17] MEDS: HEPARIN (PORCINE) 1000 UNIT/ML (DIALYSIS) IVP PRN ×2 (15:21)
== END 2018-11-17 18:05 | disposition home or self-care (01) ==
LOC: DIAL 16:30
PROVIDERS: ATTEND Internal Medicine Nephrology
DX: E11.22 Type 2 diabetes mellitus with diabetic chronic kidney disease (principal); N18.6 End stage renal disease; I12.0 Hypertensive chronic kidney disease with stage 5 chronic kidney disease or end stage renal disease; N25.81 Secondary hyperparathyroidism of renal origin; E83.39 Other disorders of phosphorus metabolism; D63.1 Anemia in chronic kidney disease; G47.33 Obstructive sleep apnea (adult) (pediatric); M10.9 Gout, unspecified; Z99.2 Dependence on renal dialysis; R60.0 Localized edema; Z99.81 Dependence on supplemental oxygen; Z88.6 Allergy status to analgesic agent
CPT/HCPCS: 82040; 82247; 82306; 82310; 82374; 82565; 82728; 82947; 83540; 83550; 83970; 84075; 84100; 84132; 84295; 84460; 84520; 85018; 85025; 86580; 87340; 90999; J2916

== ENCOUNTER 2018-11-19 10:14 | Outpatient (RCR) | payer OTHER ==
[2014-04-20 09:34] VITALS: BMI 47.1
[~2018-11-19 10:14] MED LIST changes: +AMLO-125 PO; -BUME1TAB19 PO; +BUME1TAB21 PO; -DIALYSIS ACETAMINOPHEN 325 MG PO PRN; +LISI5TAB25 PO; +VIT-35 PO
[2018-11-19] MEDS: HEPARIN (PORCINE) 1000 UNIT/ML (DIALYSIS) IVP PRN ×2 (13:24)
[2018-11-24] MEDS: HEPARIN (PORCINE) 1000 UNIT/ML (DIALYSIS) IVP PRN ×2 (15:25)
[2018-11-26] MEDS: HEPARIN (PORCINE) 1000 UNIT/ML (DIALYSIS) IVP PRN ×2 (12:15)
[2018-11-28] MEDS: HEPARIN (PORCINE) 1000 UNIT/ML (DIALYSIS) IVP PRN ×2 (12:09)
[2018-12-01] MEDS: HEPARIN (PORCINE) 1000 UNIT/ML (DIALYSIS) IVP PRN ×2 (12:17)
[2018-12-03] MEDS: HEPARIN (PORCINE) 1000 UNIT/ML (DIALYSIS) IVP PRN ×2 (12:03)
[2018-12-05] MEDS: HEPARIN (PORCINE) 1000 UNIT/ML (DIALYSIS) IVP PRN ×2 (12:13)
[2018-12-08] MEDS: HEPARIN (PORCINE) 1000 UNIT/ML (DIALYSIS) IVP PRN ×2 (12:09)
[2018-12-10] MEDS: HEPARIN (PORCINE) 1000 UNIT/ML (DIALYSIS) IVP PRN ×2 (06:47)
[2018-12-10 07:49] LABS: PLATELET COUNT, AUTOMATED 220 K/uL (150-450)
[2018-12-12] MEDS: HEPARIN (PORCINE) 1000 UNIT/ML (DIALYSIS) IVP PRN ×2 (12:19)
[2018-12-15] MEDS: HEPARIN (PORCINE) 1000 UNIT/ML (DIALYSIS) IVP PRN ×2 (12:07→12:08)
[2018-12-17] MEDS ORDERED: SODIUM FERRIC GLUC 62.5 MG/5ML IVP SCH (10:40)
[2018-12-17] MEDS ORDERED: SEVE800T16 PO (10:42)
[2018-12-17] MEDS: HEPARIN (PORCINE) 1000 UNIT/ML (DIALYSIS) IVP PRN ×2 (12:09)
[2018-12-17] MEDS: SODIUM FERRIC GLUC 62.5 MG/5ML IVP PRN (13:42)
[2018-12-19] MEDS: HEPARIN (PORCINE) 1000 UNIT/ML (DIALYSIS) IVP PRN ×2 (12:03)
[2018-12-22] MEDS: HEPARIN (PORCINE) 1000 UNIT/ML (DIALYSIS) IVP PRN ×2 (12:13→12:14)
[2018-12-24] MEDS: HEPARIN (PORCINE) 1000 UNIT/ML (DIALYSIS) IVP PRN ×2 (11:38)
[2018-12-24] MEDS: SODIUM FERRIC GLUC 62.5 MG/5ML IVP PRN (12:39)
[2018-12-26] MEDS: HEPARIN (PORCINE) 1000 UNIT/ML (DIALYSIS) IVP PRN ×2 (06:32)
[2018-12-26] MEDS ORDERED: DARBEPOETIN ESRD 25 MCG/ML IVP PRN (15:40)
[2018-12-29] MEDS: HEPARIN (PORCINE) 1000 UNIT/ML (DIALYSIS) IVP PRN ×2 (12:06)
[2018-12-31] MEDS: HEPARIN (PORCINE) 1000 UNIT/ML (DIALYSIS) IVP PRN ×2 (06:36)
[2018-12-31] MEDS: SODIUM FERRIC GLUC 62.5 MG/5ML IVP PRN (07:33)
[2019-01-02] MEDS: HEPARIN (PORCINE) 1000 UNIT/ML (DIALYSIS) IVP PRN ×2 (06:37)
[2019-01-05] MEDS: HEPARIN (PORCINE) 1000 UNIT/ML (DIALYSIS) IVP PRN ×2 (06:51)
[2019-01-07] MEDS: HEPARIN (PORCINE) 1000 UNIT/ML (DIALYSIS) IVP PRN ×2 (06:40)
[2019-01-07 07:37] LABS: PLATELET COUNT, AUTOMATED 186 K/uL (150-450)
[2019-01-07] MEDS: SODIUM FERRIC GLUC 62.5 MG/5ML IVP PRN (08:10)
[2019-01-09] MEDS: HEPARIN (PORCINE) 1000 UNIT/ML (DIALYSIS) IVP PRN ×2 (06:41→06:42)
[2019-01-12] MEDS: HEPARIN (PORCINE) 1000 UNIT/ML (DIALYSIS) IVP PRN ×2 (06:43→06:44)
[2019-01-14] MEDS: HEPARIN (PORCINE) 1000 UNIT/ML (DIALYSIS) IVP PRN ×2 (06:37→06:38)
[2019-01-14] MEDS: SODIUM FERRIC GLUC 62.5 MG/5ML IVP PRN (07:41)
[2019-01-14] MEDS: DIALYSIS ACETAMINOPHEN 325 MG PO PRN (07:43)
[2019-01-14] MEDS ORDERED: CHOL10005 PO (12:50)
[2019-01-16] MEDS: HEPARIN (PORCINE) 1000 UNIT/ML (DIALYSIS) IVP PRN ×2 (06:37)
[2019-01-19] MEDS: HEPARIN (PORCINE) 1000 UNIT/ML (DIALYSIS) IVP PRN ×2 (08:37)
[2019-01-21] MEDS: HEPARIN (PORCINE) 1000 UNIT/ML (DIALYSIS) IVP PRN ×2 (06:37)
[2019-01-21] MEDS: DIALYSIS ACETAMINOPHEN 325 MG PO PRN (07:09)
[2019-01-21] MEDS: SODIUM FERRIC GLUC 62.5 MG/5ML IVP PRN (07:09)
[2019-01-21 07:37] LABS: PLATELET COUNT, AUTOMATED 263 K/uL (150-450)
[2019-01-23] MEDS: HEPARIN (PORCINE) 1000 UNIT/ML (DIALYSIS) IVP PRN ×2 (06:28)
[2019-01-26] MEDS: HEPARIN (PORCINE) 1000 UNIT/ML (DIALYSIS) IVP PRN ×2 (06:35)
[2019-01-28] MEDS: HEPARIN (PORCINE) 1000 UNIT/ML (DIALYSIS) IVP PRN ×2 (06:39)
[2019-01-28] MEDS: SODIUM FERRIC GLUC 62.5 MG/5ML IVP PRN (07:17)
[2019-01-30] MEDS: HEPARIN (PORCINE) 1000 UNIT/ML (DIALYSIS) IVP PRN ×2 (06:36)
[2019-01-30] MEDS ORDERED: HEPATITIS B(DIAL) VAC 20MCG/ML 1 ML VIAL IM ONLY ONE (09:00)
[2019-02-02] MEDS ORDERED: HEPATITIS B VACCINE 20 MCG/ML IM ONLY ONE (07:50)
[2019-02-02] MEDS ORDERED: HEPATITIS B(DIAL) VAC 20MCG/ML 1 ML VIAL IM ONLY ONE (07:50)
[2019-02-04] MEDS: HEPARIN (PORCINE) 1000 UNIT/ML (DIALYSIS) IVP PRN ×2 (06:46)
[2019-02-04] MEDS: SODIUM FERRIC GLUC 62.5 MG/5ML IVP PRN (07:27)
[2019-02-04] MEDS ORDERED: HEPATITIS B(DIAL) VAC 20MCG/ML 1 ML VIAL IM ONLY ONE (11:00)
[2019-02-06] MEDS: HEPARIN (PORCINE) 1000 UNIT/ML (DIALYSIS) IVP PRN ×2 (06:29)
[2019-02-09] MEDS: HEPARIN (PORCINE) 1000 UNIT/ML (DIALYSIS) IVP PRN ×2 (06:44)
[2019-02-11] MEDS: HEPARIN (PORCINE) 1000 UNIT/ML (DIALYSIS) IVP PRN ×2 (06:25)
[2019-02-11] MEDS: SODIUM FERRIC GLUC 62.5 MG/5ML IVP PRN (07:09)
[2019-02-13] MEDS: HEPARIN (PORCINE) 1000 UNIT/ML (DIALYSIS) IVP PRN ×2 (06:24)
[2019-02-16] MEDS: HEPARIN (PORCINE) 1000 UNIT/ML (DIALYSIS) IVP PRN ×2 (06:31→06:32)
[2019-02-18] MEDS: HEPARIN (PORCINE) 1000 UNIT/ML (DIALYSIS) IVP PRN ×2 (06:53)
[2019-02-18] MEDS: SODIUM FERRIC GLUC 62.5 MG/5ML IVP PRN (08:39)
[2019-02-18] MEDS: DIALYSIS ACETAMINOPHEN 325 MG PO PRN (08:39)
[2019-02-20] MEDS: HEPARIN (PORCINE) 1000 UNIT/ML (DIALYSIS) IVP PRN ×2 (06:24)
[2019-02-23] MEDS: HEPARIN (PORCINE) 1000 UNIT/ML (DIALYSIS) IVP PRN ×2 (06:35)
[2019-02-25] MEDS: HEPARIN (PORCINE) 1000 UNIT/ML (DIALYSIS) IVP PRN ×2 (06:21→06:23)
[2019-02-25] MEDS: SODIUM FERRIC GLUC 62.5 MG/5ML IVP PRN (06:40)
[2019-02-27] MEDS: HEPARIN (PORCINE) 1000 UNIT/ML (DIALYSIS) IVP PRN ×2 (06:29)
[2019-02-27] MEDS: DIALYSIS ACETAMINOPHEN 325 MG PO PRN (07:24)
[2019-03-02] MEDS: HEPARIN (PORCINE) 1000 UNIT/ML (DIALYSIS) IVP PRN ×2 (06:25→06:26)
[2019-03-04] MEDS: HEPARIN (PORCINE) 1000 UNIT/ML (DIALYSIS) IVP PRN ×2 (06:32→06:33)
[2019-03-04] MEDS: SODIUM FERRIC GLUC 62.5 MG/5ML IVP PRN (07:28)
[2019-03-04] MEDS: DIALYSIS ACETAMINOPHEN 325 MG PO PRN (07:29)
[2019-03-04 07:48] LABS: PLATELET COUNT, AUTOMATED 205 K/uL (150-450)
[2019-03-06] MEDS: HEPARIN (PORCINE) 1000 UNIT/ML (DIALYSIS) IVP PRN ×2 (06:28)
[2019-03-09] MEDS: HEPARIN (PORCINE) 1000 UNIT/ML (DIALYSIS) IVP PRN ×2 (06:35→06:36)
[2019-03-11] MEDS: HEPARIN (PORCINE) 1000 UNIT/ML (DIALYSIS) IVP PRN ×2 (06:31→06:32)
[2019-03-11] MEDS: SODIUM FERRIC GLUC 62.5 MG/5ML IVP PRN (07:28)
[2019-03-13] MEDS: HEPARIN (PORCINE) 1000 UNIT/ML (DIALYSIS) IVP PRN ×2 (06:20)
[2019-03-16] MEDS: HEPARIN (PORCINE) 1000 UNIT/ML (DIALYSIS) IVP PRN ×2 (06:32)
[2019-03-18] MEDS: HEPARIN (PORCINE) 1000 UNIT/ML (DIALYSIS) IVP PRN ×2 (06:33)
[2019-03-18] MEDS: SODIUM FERRIC GLUC 62.5 MG/5ML IVP PRN (07:24)
[2019-03-20] MEDS: HEPARIN (PORCINE) 1000 UNIT/ML (DIALYSIS) IVP PRN ×2 (06:35→06:36)
[2019-03-23] MEDS: HEPARIN (PORCINE) 1000 UNIT/ML (DIALYSIS) IVP PRN ×2 (06:36→06:37)
[2019-03-25] MEDS: HEPARIN (PORCINE) 1000 UNIT/ML (DIALYSIS) IVP PRN ×2 (06:37)
[2019-03-25] MEDS: DIALYSIS ACETAMINOPHEN 325 MG PO PRN (06:42)
[2019-03-25] MEDS: SODIUM FERRIC GLUC 62.5 MG/5ML IVP PRN (07:10)
[2019-03-27] MEDS: HEPARIN (PORCINE) 1000 UNIT/ML (DIALYSIS) IVP PRN ×2 (06:42→06:43)
[2019-03-27] MEDS: DIALYSIS ACETAMINOPHEN 325 MG PO PRN (07:15)
[2019-03-30] MEDS: HEPARIN (PORCINE) 1000 UNIT/ML (DIALYSIS) IVP PRN ×2 (06:27→06:28)
[2019-04-01] MEDS: HEPARIN (PORCINE) 1000 UNIT/ML (DIALYSIS) IVP PRN ×2 (06:29)
[2019-04-01] MEDS: SODIUM FERRIC GLUC 62.5 MG/5ML IVP PRN (06:50)
[2019-04-01 07:28] LABS: PLATELET COUNT, AUTOMATED 208 K/uL (150-450)
[2019-04-03] MEDS: HEPARIN (PORCINE) 1000 UNIT/ML (DIALYSIS) IVP PRN ×2 (06:38)
[2019-04-06] MEDS: HEPARIN (PORCINE) 1000 UNIT/ML (DIALYSIS) IVP PRN ×2 (06:32)
[2019-04-08] MEDS: HEPARIN (PORCINE) 1000 UNIT/ML (DIALYSIS) IVP PRN ×2 (06:20→06:21)
[2019-04-08] MEDS: SODIUM FERRIC GLUC 62.5 MG/5ML IVP PRN (06:55)
[2019-04-08] MEDS: DIALYSIS ACETAMINOPHEN 325 MG PO PRN (07:27)
[2019-04-10] MEDS: HEPARIN (PORCINE) 1000 UNIT/ML (DIALYSIS) IVP PRN ×2 (06:30)
[2019-04-13] MEDS: HEPARIN (PORCINE) 1000 UNIT/ML (DIALYSIS) IVP PRN ×2 (06:34)
[2019-04-15] MEDS: HEPARIN (PORCINE) 1000 UNIT/ML (DIALYSIS) IVP PRN ×2 (06:24→06:25)
[2019-04-15] MEDS: SODIUM FERRIC GLUC 62.5 MG/5ML IVP PRN (07:46)
[2019-04-15] MEDS ORDERED: HEPATITIS B(DIAL) VAC 20MCG/ML 1 ML VIAL IM ONLY ONE (11:00)
[2019-04-17] MEDS: HEPARIN (PORCINE) 1000 UNIT/ML (DIALYSIS) IVP PRN ×2 (06:38)
[2019-04-20] MEDS: HEPARIN (PORCINE) 1000 UNIT/ML (DIALYSIS) IVP PRN ×2 (06:41)
[2019-04-22] MEDS: HEPARIN (PORCINE) 1000 UNIT/ML (DIALYSIS) IVP PRN ×2 (06:44)
[2019-04-22 07:23] LABS: PLATELET COUNT, AUTOMATED 199 K/uL (150-450)
[2019-04-22] MEDS: SODIUM FERRIC GLUC 62.5 MG/5ML IVP PRN (07:48)
[2019-04-24] MEDS: HEPARIN (PORCINE) 1000 UNIT/ML (DIALYSIS) IVP PRN ×2 (06:28)
[2019-04-27] MEDS: HEPARIN (PORCINE) 1000 UNIT/ML (DIALYSIS) IVP PRN ×2 (06:33→06:34)
[2019-04-29] MEDS: HEPARIN (PORCINE) 1000 UNIT/ML (DIALYSIS) IVP PRN ×2 (06:18)
[2019-04-29] MEDS: SODIUM FERRIC GLUC 62.5 MG/5ML IVP PRN (06:47)
[2019-05-01] MEDS: HEPARIN (PORCINE) 1000 UNIT/ML (DIALYSIS) IVP PRN ×2 (06:19)
[2019-05-01] MEDS: DIALYSIS ACETAMINOPHEN 325 MG PO PRN (06:37)
[2019-05-01] MEDS ORDERED: BUPR-147 PO (08:10)
[2019-05-04] MEDS: HEPARIN (PORCINE) 1000 UNIT/ML (DIALYSIS) IVP PRN ×2 (06:26)
[2019-05-04] MEDS: DIALYSIS ACETAMINOPHEN 325 MG PO PRN (07:27)
[2019-05-08] MEDS ORDERED: HEPARIN (PORCINE) 1000 UNIT/ML (DIALYSIS) ONE ×2 (05:16→05:17)
[2019-05-08] MEDS: HEPARIN (PORCINE) 1000 UNIT/ML (DIALYSIS) IVP PRN ×2 (07:25)
[2019-05-08] MEDS: SODIUM FERRIC GLUC 62.5 MG/5ML IVP PRN (08:00)
[2019-05-11] MEDS: HEPARIN (PORCINE) 1000 UNIT/ML (DIALYSIS) IVP PRN ×2 (06:24)
[2019-05-11] MEDS: DARBEPOETIN ESRD 25 MCG/ML IVP PRN (07:27)
[2019-05-13] MEDS ORDERED: HEPARIN (PORCINE) 1000 UNIT/ML (DIALYSIS) ONE (05:27)
[2019-05-13] MEDS: SODIUM FERRIC GLUC 62.5 MG/5ML IVP PRN (07:15)
[2019-05-15] MEDS: HEPARIN (PORCINE) 1000 UNIT/ML (DIALYSIS) IVP PRN ×2 (06:24)
[2019-05-15] MEDS: DARBEPOETIN ESRD 25 MCG/ML IVP PRN (06:38)
[2019-05-18] MEDS: HEPARIN (PORCINE) 1000 UNIT/ML (DIALYSIS) IVP PRN ×2 (06:25)
[2019-05-19] MEDS ORDERED: TEST1PAT3 TD (11:41)
[2019-05-19] MEDS ORDERED: TEST200V IM (13:33)
[2019-05-20] MEDS: HEPARIN (PORCINE) 1000 UNIT/ML (DIALYSIS) IVP PRN ×2 (06:16→06:17)
[2019-05-20] MEDS: SODIUM FERRIC GLUC 62.5 MG/5ML IVP PRN (06:54)
[2019-05-20] MEDS: DIALYSIS ACETAMINOPHEN 325 MG PO PRN (07:47)
[2019-05-22] MEDS: HEPARIN (PORCINE) 1000 UNIT/ML (DIALYSIS) IVP PRN ×2 (06:14)
[2019-05-22] MEDS: DARBEPOETIN ESRD 25 MCG/ML IVP PRN (07:01)
[2019-05-25] MEDS: HEPARIN (PORCINE) 1000 UNIT/ML (DIALYSIS) IVP PRN ×2 (06:13)
[2019-05-27] MEDS: HEPARIN (PORCINE) 1000 UNIT/ML (DIALYSIS) IVP PRN ×2 (06:45)
[2019-05-27] MEDS: SODIUM FERRIC GLUC 62.5 MG/5ML IVP PRN (08:14)
[2019-05-27] MEDS ORDERED: TEST200V IM (09:32)
[2019-05-29] MEDS: HEPARIN (PORCINE) 1000 UNIT/ML (DIALYSIS) IVP PRN ×2 (06:36)
[2019-06-01] MEDS: HEPARIN (PORCINE) 1000 UNIT/ML (DIALYSIS) IVP PRN ×2 (06:12)
[2019-06-03] MEDS: HEPARIN (PORCINE) 1000 UNIT/ML (DIALYSIS) IVP PRN ×2 (06:32)
[2019-06-03] MEDS: SODIUM FERRIC GLUC 62.5 MG/5ML IVP PRN (06:59)
[2019-06-05] MEDS: HEPARIN (PORCINE) 1000 UNIT/ML (DIALYSIS) IVP PRN ×2 (06:09)
[2019-06-08] MEDS: HEPARIN (PORCINE) 1000 UNIT/ML (DIALYSIS) IVP PRN ×2 (06:19)
[2019-06-10] MEDS: HEPARIN (PORCINE) 1000 UNIT/ML (DIALYSIS) IVP PRN ×2 (06:30)
[2019-06-10] MEDS: SODIUM FERRIC GLUC 62.5 MG/5ML IVP PRN (07:35)
[2019-06-10 13:45] LABS: PLATELET COUNT, AUTOMATED 223 K/uL (150-450)
[2019-06-12] MEDS: HEPARIN (PORCINE) 1000 UNIT/ML (DIALYSIS) IVP PRN ×2 (06:16→06:17)
[2019-06-15] MEDS: HEPARIN (PORCINE) 1000 UNIT/ML (DIALYSIS) IVP PRN ×2 (06:26)
[2019-06-15] MEDS: DIALYSIS ACETAMINOPHEN 325 MG PO PRN (08:28)
[2019-06-16] MEDS ORDERED: TEST200V IM (14:55)
[2019-06-17] MEDS: HEPARIN (PORCINE) 1000 UNIT/ML (DIALYSIS) IVP PRN ×2 (06:21)
[2019-06-17] MEDS: SODIUM FERRIC GLUC 62.5 MG/5ML IVP PRN (06:45)
[2019-06-19] MEDS: HEPARIN (PORCINE) 1000 UNIT/ML (DIALYSIS) IVP PRN ×2 (06:15)
[2019-06-22] MEDS: HEPARIN (PORCINE) 1000 UNIT/ML (DIALYSIS) IVP PRN ×2 (06:34→06:35)
[2019-06-24] MEDS: HEPARIN (PORCINE) 1000 UNIT/ML (DIALYSIS) IVP PRN ×2 (06:34)
[2019-06-24] MEDS: SODIUM FERRIC GLUC 62.5 MG/5ML IVP PRN (07:20)
[2019-06-26] MEDS: HEPARIN (PORCINE) 1000 UNIT/ML (DIALYSIS) IVP PRN ×2 (06:21)
[2019-06-29] MEDS: HEPARIN (PORCINE) 1000 UNIT/ML (DIALYSIS) IVP PRN ×2 (06:19)
[2019-07-01] MEDS: HEPARIN (PORCINE) 1000 UNIT/ML (DIALYSIS) IVP PRN ×2 (06:48)
[2019-07-01] MEDS: SODIUM FERRIC GLUC 62.5 MG/5ML IVP PRN (07:16)
[2019-07-01 07:55] LABS: PLATELET COUNT, AUTOMATED 182 K/uL (150-450)
[2019-07-03] MEDS: HEPARIN (PORCINE) 1000 UNIT/ML (DIALYSIS) IVP PRN ×2 (06:43)
[2019-07-06] MEDS: HEPARIN (PORCINE) 1000 UNIT/ML (DIALYSIS) IVP PRN ×2 (06:12→06:13)
[2019-07-06] MEDS: DIALYSIS ACETAMINOPHEN 325 MG PO PRN (06:13)
[2019-07-07] MEDS ORDERED: TEST200V IM (10:30)
[2019-07-08] MEDS: HEPARIN (PORCINE) 1000 UNIT/ML (DIALYSIS) IVP PRN ×2 (06:46)
[2019-07-08] MEDS: SODIUM FERRIC GLUC 62.5 MG/5ML IVP PRN (07:14)
[2019-07-10] MEDS: HEPARIN (PORCINE) 1000 UNIT/ML (DIALYSIS) IVP PRN ×2 (06:18)
[2019-07-10] MEDS: DIALYSIS ACETAMINOPHEN 325 MG PO PRN (06:47)
== END 2019-07-18 ==
LOC: DIAL 10:14
PROVIDERS: ATTEND Internal Medicine Nephrology
DX: E11.22 Type 2 diabetes mellitus with diabetic chronic kidney disease (principal); N18.6 End stage renal disease; I12.0 Hypertensive chronic kidney disease with stage 5 chronic kidney disease or end stage renal disease; D63.1 Anemia in chronic kidney disease; N25.81 Secondary hyperparathyroidism of renal origin; E55.9 Vitamin D deficiency, unspecified; G47.33 Obstructive sleep apnea (adult) (pediatric); Z99.89 Dependence on other enabling machines and devices; M10.9 Gout, unspecified; J96.11 Chronic respiratory failure with hypoxia; Z99.81 Dependence on supplemental oxygen; Z99.2 Dependence on renal dialysis; E66.9 Obesity, unspecified
CPT/HCPCS: 82040; 82108; 82247; 82306; 82310; 82374; 82465; 82565; 82728; 82947; 83036; 83540; 83550; 83970; 84075; 84100; 84132; 84295; 84403; 84460; 84478; 84520; 84540; 85018; 85025; 86580; 86706; 86803; 87340; 90471; 90747; 90999; A4657; G0010; J0882; J1644; J2916; Q0169

== ENCOUNTER → 2019-01-07 | Outpatient (CLI) | payer OTHER ==
[2014-04-20 09:34] VITALS: BMI 47.1
[~2019-01-07] MED LIST changes: +BUME1TAB19 PO; -BUME1TAB21 PO; -LIDOCAINE/SOD BICARB 8.4% SYR SC PRN; -LOPERAMIDE HCL 2 MG CAP PO PRN; -PROMETHAZINE HCL 25 MG TAB PO PRN; +SEVE800T16 PO; -diphenhydr DIALYSIS 50 MG/ML IVP PRN
== END ==
LOC: LAB 11:21
PROVIDERS: ATTEND Nurse Practitioner Family
DX: R53.81 Other malaise (principal); E87.8 Other disorders of electrolyte and fluid balance, not elsewhere classified; E78.00 Pure hypercholesterolemia, unspecified; R73.01 Impaired fasting glucose; E53.8 Deficiency of other specified B group vitamins
CPT/HCPCS: 36415; 82040; 82247; 82310; 82374; 82435; 82465; 82565; 82607; 82947; 83036; 83718; 84075; 84132; 84155; 84295; 84443; 84450; 84460; 84478; 84520; 85027

== ENCOUNTER → 2019-01-21 | Outpatient (REF) | payer OTHER ==
[2014-04-20 09:34] VITALS: BMI 47.1
[~2019-01-21] MED LIST changes: +CHOL10005 PO
== END ==
LOC: ZZSENDIN 07:44
PROVIDERS: ATTEND Nurse Practitioner Family
DX: R94.6 Abnormal results of thyroid function studies (principal)
CPT/HCPCS: 84436; 84443; 84479

== ENCOUNTER → 2019-02-12 | Outpatient (CLI) | payer OTHER ==
[2014-04-20 09:34] VITALS: BMI 47.1
--- NOTE | 2019-02-12 12:51 | RADIOLOGY IMAGING REPORT ---
FACILITY: [facility] PATIENT NAME: Robin Bowen : 1965 MR: [id number] V: [id number] EXAM DATE: ORDERING PHYSICIAN: LYN JOAQUIN TECHNOLOGIST: Location: [facility] - [place], [place] Patient: Robin Bowen : 1965 Visit/Account:[id number] Date of Sevice: 02/12/2019 CAROTID HISTORY: Carotid ultrasound Indication: Comparison:None available Findings: On the right : Peak systolic velocity of the right common carotid artery is 135 cm/s Peak systolic velocity of the right internal carotid artery is 108 cm/s There is normal antegrade flow of the right vertebral artery. The right ICA/CCA ratio is 0.93 There is mild atherosclerotic plaque seen within the right carotid bulb. No flow-limiting lesions On the left: Peak systolic velocity of the left common carotid artery is 178 cm/s Peak systolic velocity of the left internal carotid artery is 210 cm/s within the bulb. Distal ICAs 137cm/sec There is normal antegrade flow of the left vertebral artery. The left ICA/CCA ratio is 0.75 Mild atherosclerotic plaque at the carotid bulb and internal carotid. No flow-limiting lesions IMPRESSION: 1. Generalized increased velocity within the left common carotid artery through the carotid bulb. N o obvious flow-limiting lesions within either carotid system. Velocity criteria are extrapolated from diameter data as defined by the Society of Radiologists in th e Ultrasound Consensus Conference Radiology 2003:229:340-346 Report Dictated By: Trell Dallas MD at 02/12/2019 12:25 PM Report E-Signed By: Trell Dallas MD at 02/12/2019 12:47 PM WSN:[email or web address]
== END ==
LOC: US 00:51
PROVIDERS: ATTEND Nurse Practitioner Family
DX: I65.23 Occlusion and stenosis of bilateral carotid arteries (principal)
CPT/HCPCS: 93880

== ENCOUNTER → 2019-02-16 | Outpatient (CLI) | payer OTHER ==
[2014-04-20 09:34] VITALS: BMI 47.1
--- NOTE | 2019-02-16 13:26 | RADIOLOGY IMAGING REPORT ---
FACILITY: [facility] - [place] PATIENT NAME: Robin Bowen : 1965 MR: [id number] V: [id number] EXAM DATE: ORDERING PHYSICIAN: LYN JOAQUIN TECHNOLOGIST: Location: [facility] - [place] Patient: Robin Bowen : 1965 Visit/Account:[id number] Date of Sevice: 02/16/2019 CERVICAL SPINE 2 OR 3 VIEW Indication: Neck pain with limited range of motion. Comparison: None. Findings: The vertebral bodies and posterior elements are intact. Facets are unremarkable. IMPRESSION: Normal cervical spine radiograph. Report Dictated By: Temo Natarajan at 02/16/2019 1:21 PM Report E-Signed By: Temo Natarajan at 02/16/2019 1:22 PM WSN:[email or web address]
== END ==
LOC: RAD 11:37
PROVIDERS: ATTEND Nurse Practitioner Family
DX: M54.2 Cervicalgia (principal); M54.9 Dorsalgia, unspecified
CPT/HCPCS: 72040

== ENCOUNTER → 2019-02-24 | Outpatient (CLI) | payer OTHER ==
[2014-04-20 09:34] VITALS: BMI 47.1
--- NOTE | 2019-02-24 22:35 | RADIOLOGY IMAGING REPORT ---
FACILITY: [facility] PATIENT NAME: Robin Bowen : 1965 MR: [id number] V: [id number] EXAM DATE: ORDERING PHYSICIAN: LYN JOAQUIN TECHNOLOGIST: Location: [facility] - [place] Patient: Robin Bowen : 1965 Visit/Account:[id number] Date of Sevice: 02/24/2019 Thyroid Ultrasound HISTORY: Elevated thyroid levels. COMPARISON: None. FINDINGS: SIZE: Normal. Right lobe: 4.7 x 1.1 x 1.3 cm Left lobe: 5.0 x 1.8 x 1.5 cm Isthmus: 4 mm PARENCHYMA: Homogeneous. NODULES: Right lobe: * None discrete. Left lobe: * None discrete. Isthmus: * None discrete. VASCULARITY: Within normal limits. ADDITIONAL FINDINGS: None. IMPRESSION: 1. Normal thyroid sonogram. REFERENCE: 2015 [place] [employer] Management Guidelines for Adult Patients with Thyroid Nodules and D ifferentiated Thyroid Cancer: The [place] [employer] Guidelines Task Force on Thyroid Nodul es and Differentiated Thyroid Cancer. SONOGRAPHIC PATTERNS: * Benign: Purely cystic nodules (no solid component); estimated risk of malignancy <1 percent; no bi opsy recommended. * Very Low Suspicion: Spongiform or partially cystic nodules without any of the sonographic features described in low, intermediate, or high suspicion patterns; estimated risk of malignancy <3 percent; consider FNA at > 2 cm (Observation without FNA is also a reasonable option). * Low Suspicion: Isoechoic or hyperechoic solid nodule, or partially cystic nodule with eccentric so lid areas, without microcalcification, irregular margin or ETE (extra-thyroidal extension), or taller than wide shape; estimated risk of malignancy 5-10 percent; recommend FNA at >1.5 cm. * Intermediate Suspicion: Hypoechoic solid nodule with smooth margins without microcalcifications, E TE (extra-thyroidal extension), or taller than wide shape; estimated risk of malignancy 10-20 percent ; recommend FNA at > 1 cm. * High Suspicion: Solid hypoechoic nodule or solid hypoechoic component of a partially cystic nodule with one or more of the following features: irregular margins (infiltrative, microlobulated), microc alcifications, taller than wide shape, rim calcifications with small extrusive soft tissue component, evidence of ETE (extra-thyroidal extension); estimated risk of malignancy >70-90 percent; recommend FNA at > 1 cm. NOTES: * Although a sonographically suspicious subcentimeter thyroid nodule without evidence of extrathyroi ewdard extension or sonographically suspicious lymph nodes may be observed with close sonographic follow -up rather than pursuing immediate FNA, patient age and preference may modify decision-making. A > 50% interval increase in nodule volume and/or development of new suspicious sonographic features are felt to be a valid reasons for potential re-aspiration of a nodule previously shown to have benig n FNA cytology. Report Dictated By: Kain Ulloa at 02/24/2019 10:28 PM Report E-Signed By: Kain Ulloa at 02/24/2019 10:30 PM WSN:[id number]
== END ==
LOC: US 00:53
PROVIDERS: ATTEND Nurse Practitioner Family
DX: R94.6 Abnormal results of thyroid function studies (principal)
CPT/HCPCS: 76536

== ENCOUNTER → 2019-03-04 | Outpatient (REF) | payer OTHER ==
[2014-04-20 09:34] VITALS: BMI 47.1
== END ==
LOC: ZZSENDIN 07:42
PROVIDERS: ATTEND Internal Medicine Endocrinology, Diabetes & Metabolism
DX: E05.90 Thyrotoxicosis, unspecified without thyrotoxic crisis or storm (principal)
CPT/HCPCS: 83519; 84439; 84443; 84445; 84481; 86376

== ENCOUNTER → 2019-05-08 | Outpatient (REF) | payer OTHER ==
[2014-04-20 09:34] VITALS: BMI 47.1
[~2019-05-08] MED LIST changes: -BUME1TAB19 PO; +BUME1TAB21 PO; +BUPR-147 PO
== END ==
LOC: ZZSENDIN 07:17
PROVIDERS: ATTEND Urology
DX: N52.9 Male erectile dysfunction, unspecified (principal)
CPT/HCPCS: 84402

== ENCOUNTER → 2019-06-09 | Outpatient (CLI) | payer OTHER ==
[2014-04-20 09:34] VITALS: BMI 47.1
[~2019-06-09] MED LIST changes: +TEST1PAT3 TD; +TEST200V IM
--- NOTE | 2019-06-09 10:50 | RADIOLOGY IMAGING REPORT ---
FACILITY: [facility] - [place] PATIENT NAME: Robin Bowen : 1965 MR: [id number] V: [id number] EXAM DATE: ORDERING PHYSICIAN: ALBERTO HERBERT TECHNOLOGIST: Location: [facility] - [place] Patient: Robin Bowen : 1965 Visit/Account:[id number] Date of Sevice: 06/09/2019 EXAMINATION: Scrotal ultrasound with duplex Doppler evaluation HISTORY: Pain in left testicle x1.5 years, comes and goes. Unable to get an erection. COMPARISON: None. FINDINGS: Testes: Normal in size and echogenicity without mass or microlithiasis. The right testis measures 3. 7 x 1.9 x 2.7 cm and the left testis measures 3.8 x 1.9 x 2.5 cm. Symmetric blood flow documented by color Doppler ultrasound. Low resistance arterial blood flow within each testicle by duplex Doppler ultrasound. Venous blood fl ow is also documented. Epididymides: Negative. Blood flow is appropriate in each epididymis by color Doppler ultrasound. Hydrocele: None. Varicocele: None. IMPRESSION: Normal scrotal ultrasound. Report Dictated By: Lucy Keating MD at 06/09/2019 10:38 AM Report E-Signed By: Lucy Keating MD at 06/09/2019 10:40 AM WSN:[email or web address]
--- NOTE | 2019-06-09 13:44 | RADIOLOGY IMAGING REPORT ---
FACILITY: [facility] - [place] PATIENT NAME: Robin Bowen : 1965 MR: [id number] V: [id number] EXAM DATE: ORDERING PHYSICIAN: ALBERTO HERBERT TECHNOLOGIST: [place] [facility] [place] Bowen : 1965 Visit/Account:[id number] Date of Sevice: 06/09/2019 EXAMINATION: CT Pelvis W/O Contrast HISTORY: Kidney disease, rectal dysfunction TECHNIQUE: Spiral scan was through the pelvis without intravenous contrast. One of the following do se optimization techniques was utilized in the performance of this exam: Automated exposure control; adjustment of the mA and/or kV according to the patient's size; or use of an iterative reconstructio n technique. Specific details can be referenced in the facility's radiology CT exam operational stephen cy. COMPARISON STUDIES: CT scan 02/13/2014. FINDINGS: Of note, without the use of contrast, sensitivity to detection of parenchymal disease is li mited. Pelvic structures: Bladder appears thick-walled and trabeculated although this may reflect poor di stention. No definite mass is identified. Seminal vesicles appear grossly unremarkable. No focal a bnormality seen in the prostate. Bowel / peritoneum / mesenteries: There is no evidence of bowel obstruction. No bowel wall thickenin g. Patient status post appendectomy. Tubing for the lap band is seen within the peritoneal cavity. There is no free fluid or free air identified. Vessels: There are extensive vascular calcifications in both the aorta, internal and external iliac v essels and the femoral vessels. There is no aneurysm. Musculoskeletal / Body wall: Degenerative changes present in the lumbar spine. Incidental note made of a fat-containing umbilical hernia. Pump for the patient's lap band seen in the subcutaneous tissues overlying the right lower rectus mus selina. Lymph node assessment: Scattered inguinal nodes are present bilaterally. There is no pelvic sidewall adenopathy. IMPRESSION: 1. No focal abnormality seen in the seminal vesicles or prostate. 2. Extensive vascular calcifications throughout both the internal and external iliac vessels. There is also atherosclerotic changes in the femoral vessels. 3. Thick-walled trabeculated bladder, this may reflect poor distention of the bladder is incompletel y filled. No focal abnormality is seen. 4. No adenopathy or soft tissue masses. 5. Fat-containing umbilical hernia. Report Dictated By: Lucy Keating MD at 06/09/2019 12:30 PM Report E-Signed By: Lucy Keating MD at 06/09/2019 1:37 PM WSN:[email or web address]
== END ==
LOC: RAD 01:57
PROVIDERS: ATTEND Urology
DX: N52.9 Male erectile dysfunction, unspecified (principal)
CPT/HCPCS: 72192; 76870